=== PATIENT | female | born 1955 | race Caucasian/White ===

== ENCOUNTER 2019-10-16 01:09 | Outpatient (CLI) | payer BC, SELFPAY ==
[2019-10-16 18:07] LABS: SARS-CoV-2 RNA PCR Negative
== END 2019-10-16 01:10 | disposition home or self-care (01) ==
LOC: ANHCOVIDDT 01:09
PROVIDERS: PCP Internal Medicine; Visit Provider Orthopaedic Surgery
DX: Z01.812 Encounter for preprocedural laboratory examination (principal); Z11.59 Encounter for screening for other viral diseases
CPT/HCPCS: 87635; C9803; U0003

== ENCOUNTER 2019-10-18 02:29 | Day surgery (SDC) | payer BC, SELFPAY ==
[2019-10-08 11:03] VITALS: BMI 38.4
[2019-10-18] VITALS (8 sets, daily range): BP systolic 122–157; BP diastolic 68–93; PULSE 57–80; RESP 10–18; TEMP 36.3–36.6; O2SAT 99–100
--- NOTE | 2019-10-18 07:06 | WPDHPUPDATE1 ---
History and Physical Update Update Date/Time: 10/18/19 07:06 History and Physical has been reviewed, including an updated exam of the patient. There are NO changes in the patient's condition. Risks, benefits, and alternatives have been discussed and questions answered. Patient agrees to proceed with procedure.
[2019-10-18] MEDS: ACETAMINOPHEN 500 MG TABLET 1000 MG PO (07:45)
[2019-10-18] MEDS: LACTATED RINGERS 1,000 ML 30 ML IV CONT (08:00)
[2019-10-18] MEDS: KETOROLAC 15 MG/ML VIAL (*BKC) IV PUSH (08:02)
--- NOTE | 2019-10-18 08:03 | WPDANESEPPF ---
Anes - Initial Pre Proc Eval Procedure: Operation Date: 10/18/19 09:30 Proposed Procedures p Right Knee Arthroscopic Partial Medial Meniscectomy - Severo Shepard MD Date/Time: 10/18/19 08:03 Surgeon: Severo Shepard MD Pre Op Diagnosis: Right Knee Medial Meniscus Tear Patient Data Age: 64 Gender: F Height: 5 ft 6 in Weight: 107.2 kg Allergies Allergy/AdvReac Type Severity Reaction Status Date / Time Penicillins Allergy Unknown Rash Verified 10/18/19 07:47 ezetimibe Allergy Itching Verified 10/18/19 07:47 strawberry Allergy THROAT Verified 10/18/19 07:47 SWELLING, DIFFICULTY BREATHING Home Medications Medication Instructions Recorded Confirmed Type B-complex with vitamin C 1 tablet PO DAILY 09/18/19 10/18/19 History ywzmnnacqxsh-xpmlffib-abmevr 1 tablet PO DAILY 09/18/19 10/18/19 History Vitamin C 2 tablet PO DAILY 10/08/19 10/18/19 History Vitamin D3 2 tablet PO DAILY 10/08/19 10/18/19 History acetaminophen 1,000 mg PO BID PRN 10/08/19 10/18/19 History Patient hx anesthesia problems: none Family hx anesthesia problems: none PMFSH Past Medical History Medical History (Updated 10/18/19 @ 08:03 by Cyrus Freeman MD) History of retinal detachment (~2018) Migraine Obesity Vertigo Surgical History Surgical History History of arthroscopic knee surgery (~2004) History of hysterectomy (~2001) Family History Family History Father Heart disease Sibling Kidney replaced by transplant Skin cancer Mother Skin cancer Social History Social History Smoking status: Never smoker Alcohol intake: current Spiritual care concerns: No Anes - Eval Final PreProcedure Day of Procedure 10/18/19 08:03 Patient weight: obese Heart: regular rate and rhythm Lungs: clear to auscultation Airway: Mallampati scale class II Last oral intake: >/= 8 hours ASA classification: II Emergent: no Anesthetic plan: proceed Anesthesia type and monitoring: general LMA and standard monitoring Informed Consent: The patient's anesthetic plan and its attendant risks and benefits were discussed with the patient/family/POA. Questions were solicited and answers provided to the satisfaction of the patient/family/POA.
[2019-10-18] MEDS: ceFAZolin 2 GM/D5W 50 ML 2 GM/50 ML BAG IVPB (08:35)
[2019-10-18] MEDS: BUPIVACAINE/EPINEPHRINE 0.5% 30 ML VIAL INFILTRATE (08:53)
--- NOTE | 2019-10-18 09:30 | P.OP_ITS ---
Procedure Note - Detailed Date of procedure: 10/18/19 Pre-op diagnosis: Right Knee Medial Meniscus Tear Medial meniscus tear. Post-op diagnosis: same Procedure performed: Arthroscopic partial medial meniscectomy. Description of procedure: Extensive degenerative posterior horn medial meniscus tear. Loose posterior medial fragment. 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 Lateral compartment grade 3 chondromalacia with softening in the central weight-bearing aspect. Grade 2/3 diffuse chondromalacia at the patellofemoral joint. Anesthesia: GETA Surgeon: Severo Shepard MD Estimated blood loss (mL): 5 Complications: None Condition: stable Findings: Brief History: The patient complained of knee pain, swelling and mechanical symptoms despite conservative treatment. MRI confirmed the presence of a meniscus tear. Procedure Details: The patient was identified and the surgical site confirmed and signed in the preoperative holding area. Antibiotics were started per protocol. She was brought to the operative room and transferred to the OR table. A general anesthetic was administered. Supine position with the operative lower extremity position in the leg robertson after placement of a well padded tourni quet. The leg support was lowered and the contralateral limb was supported with a soft bolster. The knee was prepped and draped in the usual sterile fashion. A time-out was performed. The portal sites were marked and infiltrated with 0.5% Marcaine 20 mL. The limb was exsanguinated and the tourniquet inflated to 300 mL Hg. Standard inferolateral and inferomedial portals were established. Inflow was obtained with the saline pump. The camera was introduced. Diagnostic inspection of the joint was accomplished. The meniscus was debrided with the arthroscopic shaver and punches until stable. Gentle chondroplasty was performed in the medial compartment particularly in the area of more severe chondromalacia on the medial femoral condyle. The arthroscopic instruments were removed. The tourniquet released and wounds closed with subcutaneous 3-0 Monocryl absorbable suture. Steri strips and a sterile dressing were applied. A light elastic wrap was placed. The patient was extubated and brought to the recovery room in stable condition.
== END 2019-10-18 11:50 | disposition home or self-care (01) ==
PROVIDERS: PCP Physician Assistant Medical; Visit Provider Orthopaedic Surgery
PROC: (CPT 29870; principal; 2019-10-18 09:30)
DX: M23.321 Other meniscus derangements, posterior horn of medial meniscus, right knee (principal); M94.261 Chondromalacia, right knee; E66.9 Obesity, unspecified; Z68.38 Body mass index [BMI] 38.0-38.9, adult
CPT/HCPCS: 29881; 87635; A9270; C9803; J0690; J1100; J1170; J1885; J2250; J2405; J2704; J3010; J7120; U0003

== ENCOUNTER 2022-09-27 08:45 | Outpatient (RCR) | payer MEDICARE, SELFPAY ==
--- NOTE | 2022-09-16 09:34 | BUPTOPEVAL1 ---
Addendum entered by Bina Sharp, PT 09/16/22 09:49: Add Therapy condition codes and updated diagnosis code for MD to review Original Note: Assessment and note entered by Bina Sharp PT Evaluation Information Assessment Status Evaluation Diagnosis dizziness and giddiness Subjective Information Vertigo started right after hysterectomy in 2001, ear thing L ear after came back from cruise June of this year. Noted when was cleaning ears after and about 2 weeks later and noted some dried blood on the cotton swab. States was hurting and is better now but at times acts up. Prednisone pack helped. States also crickets in her ears, sometimes is ringing but sometimes is not. Vertigo is on and off . Notes when hanging clothes outside if is looking up too long or laying back in dentist chair then gets brought up everything will spin. Sometimes just laying in bed to read the world starts spinning . Sometimes ear feels heavy ENT appointment 09/23/22 Reported Pain Level Pain Score 0: Self Report Assessment PT Clinical Summary Pt demo's right downward torsional rotation with [place]-Hallpike but reports more symptoms with left sided testing and in left ear today. Symptoms suggestive of Benign Paroxismal Positional Vertigo onf Left ear with signs suggestive of right ear. Today Pt was educated on anatomy of the inner ear related to BPPV. Left Mir performed today based on pt symptoms without noted nystagmus through process. Pt will benefit from physical therpay to continue assessment of BPPV, improve balance, and improve overall symptoms to improve pt function. Plan of Care Interventions Neuro Re-education,Therapeutic Activities, Therapeutic Exercise,Self-Care/Home Management Other Interventions [employer]ER PT Services Indicated Yes Treatment Frequency and 2x weekly x 4 weeks Duration These treatments will address the objective and functional deficits as defined above. The patient will be advanced safely and appropriately in order for the patient to progress towards his/her prior level of function. Additional exercises will be introduced and as well as a comprehensive home exercise program upon discharge, if needed, ?to ensure carryover of functional gains achieved in the clinic. This treatment plan has been reviewed and agreement upon by the patient.
--- NOTE | 2022-09-16 09:36 | OPREHPOC ---
Outpatient Therapy Plan of Care This is a Multidisciplinary Plan of Care that may contain components documented by all disciplines (PT, OT, and ST.) PT Problem 1 PT Problem #1 Knowledge Deficit PT Goal 1 Goal Pt will be independent in HEP Target Visit 8 PT Goal 2 Goal Pt will verbalize understanding of diagnosis and prognosis Target Visit 8 PT Problem 2 PT Problem #2 Impaired Balance PT Goal 1 Goal Pt will demo tandem stance R/L foot forward x 15 seconds without [employer]ER[employer] ASSOCIATE Target Visit 8 PT Problem 3 PT Problem #3 Impaired Vestibular Syste PT Goal 1 Goal Pt will report resolution of symptoms with activities Target Visit 8
--- NOTE | 2022-09-16 09:39 | PCPTNOTE ---
Patient called & cancelled scheduled appointment this date due to forgetting she had an appointment. Will resume therapy next week
--- NOTE | 2022-09-16 09:51 | BUPTOPEVAL1 ---
Assessment and note entered by Bina Sharp, PT Evaluation Information Assessment Status Evaluation Diagnosis dizziness and giddiness, BPPV unspec. Therapy condition Unsteadiness on feet Subjective Information Vertigo started right after hysterectomy in 2001, ear thing L ear after came back from cruise June of this year. Noted when was cleaning ears after and about 2 weeks later and noted some dried blood on the cotton swab. States was hurting and is better now but at times acts up. Prednisone pack helped. States also crickets in her ears, sometimes is ringing but sometimes is not. Vertigo is on and off . Notes when hanging clothes outside if is looking up too long or laying back in dentist chair then gets brought up everything will spin. Sometimes just laying in bed to read the world starts spinning . Sometimes ear feels heavy ENT appointment 09/23/22 Reported Pain Level Pain Score 0: Self Report Assessment PT Clinical Summary Pt demo's right downward torsional rotation with [place]-Hallpike but reports more symptoms with left sided testing and in left ear today. Symptoms suggestive of Benign Paroxismal Positional Vertigo onf Left ear with signs suggestive of right ear. Today Pt was educated on anatomy of the inner ear related to BPPV. Left Mir performed today based on pt symptoms without noted nystagmus through process. Pt will benefit from physical therpay to continue assessment of BPPV, improve balance, and improve overall symptoms to improve pt function. Plan of Care Interventions Neuro Re-education,Therapeutic Activities, Therapeutic Exercise,Self-Care/Home Management Other Interventions CONTRIBUTION SOLICITOR PT Services Indicated Yes Treatment Frequency and 2x weekly x 4 weeks Duration These treatments will address the objective and functional deficits as defined above. The patient will be advanced safely and appropriately in order for the patient to progress towards his/her prior level of function. Additional exercises will be introduced and as well as a comprehensive home exercise program upon discharge, if needed, ?to ensure carryover of functional gains achieved in the clinic. This treatment plan has been reviewed and agreement upon by the patient.
--- NOTE | 2022-09-22 12:29 | PCPTNOTE ---
Patient called 09/21/22 & cancelled scheduled appointment this date due to stating she felt worse after last session. Pt initially stated to cancel remaining appointments and that she had an ENT appointment on Monday. Therapist advised patient to keep remainder of visits until sees ENT as the specialist may suggest PT also for her issues. Pt encouraged to call therapist after ENT appointment to discuss continuation of therapy.
--- NOTE | 2022-09-27 09:09 | PTOPDC ---
Assessment and note entered by Bina Sharp, PT Discharge Diagnosis dizziness and giddiness Reported Pain Level Pain Score 0: Self Report Assessment PT Clinical Summary Pt reports she had greatly increased symptom after last session. Reports lasted multiple days and today is the first day she has been able ot drive and function. States the symptoms of the vertigo treatment are worse than the vertigo itself. Pt was educated on changes in plan to address symptoms, options for pausing or stopping therapy, returning to therapy at a later date if her symptoms worsen. As of now, her only symptoms are with looking up for long periods and pt states she feels safe with all activities. Thus pt is being discharged from therapy at this time due to request.
== END 2022-09-27 09:35 | disposition home or self-care (01) ==
LOC: ANHHIPT 08:45
PROVIDERS: PCP Physician Assistant Medical; Visit Provider Physician Assistant Medical
DX: H81.12 Benign paroxysmal vertigo, left ear (principal)
CPT/HCPCS: 95992; 97110; 97112; 97162